=== PATIENT | female | born 1985 | race Hispanic/Latino ===

== ENCOUNTER → 2021-02-11 | Outpatient (CLI) | payer OTHER | END | disposition home or self-care (01) | LOC: LAB 18:53 | PROVIDERS: ATTEND Internal Medicine | DX: S09.93XA Unspecified injury of face, initial encounter (principal); X58.XXXA Exposure to other specified factors, initial encounter; Y92.89 Other specified places as the place of occurrence of the external cause; Y93.89 Activity, other specified; Y99.8 Other external cause status | CPT/HCPCS: 87070; 87075; 87077; 87186; 87252 ==

== ENCOUNTER → 2021-02-11 | Outpatient (CLI) | payer OTHER ==
[2021-02-11 11:17] LABS: BASOPHIL % 0.5 % (0.0-0.2); EOSINOPHIL # 0.1 10^3/uL (0.0-0.2); EOSINOPHIL % 1.1 % (0.0-5.0); LYMPHOCYTES # 1.54 10^3/uL1 (1.0-4.8); LYMPHOCYTES % 28.1 % (24.0-44.0); MEAN CORP HGB 31.2 pg (26-34); MONOCYTES # 0.2 10^3/uL (0.3-0.8); MONOCYTES % 4.2 % (5.0-12.0); NEUTROPHIL # 3.6 10^3/uL (1.8-7.7); NEUTROPHILS % 66.1 % (41.0-85.0); PLATELET COUNT 266 10^3/uL (150-400); RED CELL DISTRIBUTION WIDTH 13.1 % (11.5-14.5)
[2021-02-11 12:11] LABS: CARBON DIOXIDE 28.5 mmol/L (20.0-32)
== END | disposition home or self-care (01) ==
LOC: NPLAB 09:41
PROVIDERS: ATTEND Internal Medicine
DX: E03.9 Hypothyroidism, unspecified (principal); L01.00 Impetigo, unspecified; R53.82 Chronic fatigue, unspecified; Z79.899 Other long term (current) drug therapy; Z20.822 Contact with and (suspected) exposure to COVID-19
CPT/HCPCS: 80053; 80061; 82306; 83036; 84439; 84443; 85025

== ENCOUNTER → 2021-04-18 | Outpatient (CLI) | payer OTHER ==
--- NOTE | 2021-04-19 08:36 | DIREP ---
PROCEDURE:US PELVIC FOLLOWED BY TRANSVAGINAL COMPARISON:None. INDICATIONS:CONDITIONS WITH FEMALE GENITAL ORGANS AND MENSTRUAL CYCLE, IRREG MENSES, RLQ PAIN, nexplanon 2020 TECHNIQUE:Pelvic ultrasound using transabdominal technique. Endovaginal images were also obtained for better assessment of the uterus and adnexa. FINDINGS: LMP 04/04/2021 UTERUS:Size is 7.6 x 3.8 x 4.8 cm. The myometrium is homogeneous. ENDOMETRIUM:Thickness is 7 mm. RIGHT OVARY:4.2 x 2.9 x 2.5 cm. There is a cyst in the right ovary measuring 2.9 x 1.8 x 2 cm that has a granulated wall favoring a corpus luteum cyst. The appearance is slightly irregular and therefore follow-up is recommended. There is also a cyst in the right ovary measuring 2.5 x 1 x 1.4 cm, no internal septation or mural nodularity. LEFT OVARY:Normal appearance. 2.9 x 1.3 x 2.3 cm. CUL-DE-SAC:Normal. OTHER:Negative. CONCLUSION: 1. Right ovarian cyst: Probable corpus luteum. Hemorrhagic cyst possible. Recommend follow-up ultrasound in 6 weeks to ensure resolution. 2. Right ovarian cyst: Functional. Dictated by: Christiana Raymond MD on 04/19/2021 at 08:32 AM
== END | disposition home or self-care (01) ==
LOC: RAD 14:43
PROVIDERS: ATTEND Nurse Practitioner Women's Health
DX: N83.201 Unspecified ovarian cyst, right side (principal); N94.89 Other specified conditions associated with female genital organs and menstrual cycle
CPT/HCPCS: 76830; 76856

== ENCOUNTER → 2021-10-23 | Outpatient (CLI) | payer OTHER | END | disposition home or self-care (01) | LOC: NPLAB 09:18 | PROVIDERS: ATTEND Internal Medicine | DX: R51.9 Headache, unspecified (principal); Z20.822 Contact with and (suspected) exposure to COVID-19 | CPT/HCPCS: 87426; 87637 ==

== ENCOUNTER → 2022-01-23 | Outpatient (CLI) | payer OTHER | END | disposition home or self-care (01) | LOC: NPLAB 16:42 | PROVIDERS: ATTEND Nurse Practitioner Family | DX: N39.0 Urinary tract infection, site not specified (principal) | CPT/HCPCS: 87086 ==

== ENCOUNTER → 2022-03-30 | Outpatient (CLI) | payer OTHER ==
[2022-03-30 13:10] LABS: BASOPHIL % 0.5 % (0.0-0.2); EOSINOPHIL # 0.1 10^3/uL (0.0-0.2); EOSINOPHIL % 0.8 % (0.0-5.0); LYMPHOCYTES # 2.01 10^3/uL1 (1.0-4.8); LYMPHOCYTES % 30.9 % (24.0-44.0); MONOCYTES # 0.2 10^3/uL (0.3-0.8); MONOCYTES % 3.2 % (5.0-12.0); NEUTROPHIL # 4.2 10^3/uL (1.8-7.7); NEUTROPHILS % 64.4 % (41.0-85.0); RED CELL DISTRIBUTION WIDTH 13.4 % (11.5-14.5)
== END | disposition home or self-care (01) ==
LOC: NPLAB 12:18
PROVIDERS: ATTEND Internal Medicine
DX: E03.9 Hypothyroidism, unspecified (principal); G43.909 Migraine, unspecified, not intractable, without status migrainosus; Z79.899 Other long term (current) drug therapy
CPT/HCPCS: 36415; 80053; 80061; 82306; 82607; 82746; 83036; 84439; 84443; 85025

== ENCOUNTER → 2022-12-04 | Outpatient (CLI) | payer OTHER ==
[2022-12-04 09:46] LABS: BASOPHIL % 0.5 % (0.0-0.2); EOSINOPHIL % 0.5 % (0.0-5.0); HEMATOCRIT(ML) 41.7 % (36.0-46.0); HEMOGLOBIN 13.6 g/dL (12.0-15.0); LYMPHOCYTES # 1.86 10^3/uL1 (1.0-4.8); LYMPHOCYTES % 34.1 % (24.0-44.0); MEAN CORP HGB 30.6 pg (26-34); MEAN CORP HGB CONCENTRATION 32.6 g/dL (33-36.5); MEAN CORP VOLUME 93.7 fL (78-100); MONOCYTES # 0.2 10^3/uL (0.3-0.8); MONOCYTES % 2.9 % (5.0-12.0); NEUTROPHIL # 3.4 10^3/uL (1.8-7.7); PLATELET COUNT 276 10^3/uL (150-400); RED BLOOD CELL 4.45 10^6/uL (4.00-5.20); WHITE BLOOD CELL 5.5 10^3/uL (4.5-11.0)
[2022-12-04 09:49] LABS: +ADD MANUAL DIFF(NO CHRG) NO
[2022-12-04 10:22] LABS: ALBUMIN(ML) 3.8 g/dL (3.4-5.0); ALBUMIN/GLOBULIN RATIO 1.085; ANION GAP 14.3; CALCIUM 8.9 mg/dL (8.4-10.5); CARBON DIOXIDE 24.7 mmol/L (20.0-32); CREATININE SERUM 0.7 mg/dL (0.59-1.40); EST GFR, NON-AA 94.7 (>/=60); LDL/HDL RATIO 2.6
== END | disposition home or self-care (01) ==
LOC: LAB 09:18
PROVIDERS: ATTEND Internal Medicine
DX: D64.9 Anemia, unspecified (principal); N94.89 Other specified conditions associated with female genital organs and menstrual cycle; R53.82 Chronic fatigue, unspecified; R53.83 Other fatigue; L65.9 Nonscarring hair loss, unspecified; F50.81 Binge eating disorder; Z68.29 Body mass index [BMI] 29.0-29.9, adult
CPT/HCPCS: 36415; 80053; 80061; 82607; 82746; 83036; 83550; 84207; 84439; 84443; 85025

== ENCOUNTER → 2023-07-15 | Outpatient (CLI) | payer OTHER ==
[2023-07-15 17:45] LABS: ABSOLUTE RETICS # 0.0639 10^6uL; HEMATOCRIT(ML) 38.5 % (36.0-46.0); HEMOGLOBIN 12.6 g/dL (12.0-15.0); MEAN CORP HGB CONCENTRATION 32.7 g/dL (33-36.5); MEAN CORP VOLUME 88.5 fL (78-100); PLATELET COUNT 343 10^3/uL (150-400); RED BLOOD CELL 4.35 10^6/uL (4.00-5.20); RED CELL DISTRIBUTION WIDTH 14.7 % (11.5-14.5); WHITE BLOOD CELL 6.8 10^3/uL (4.5-11.0)
[2023-07-15 18:14] LABS: ALBUMIN(ML) 3.9 g/dL (3.4-5.0); BUN/CREATININE RATIO 22.34 (10.0-20.0); CARBON DIOXIDE 27.6 mmol/L (20.0-32); CREATININE SERUM 0.94 mg/dL (0.59-1.40); POTASSIUM 3.6 mmol/L (3.6-5.2)
[2023-07-22 08:51] LABS: REVERSE T3, SERUM-RESTRICTLAB 20.6
== END | disposition home or self-care (01) ==
LOC: LAB 16:38
PROVIDERS: ATTEND Nurse Practitioner Family
DX: D64.9 Anemia, unspecified (principal)
CPT/HCPCS: 36415; 80053; 82306; 82728; 83550; 84439; 84443; 84480; 84482; 85027; 85045; 85060